=== PATIENT | male | born 1990 | race Caucasian/White ===

== ENCOUNTER → 2019-09-14 | Outpatient (CLI) | payer BC ==
[2019-09-14 16:54] LABS: SEMEN VOLUME 2.5 ML (1.5-5.0)
== END ==
LOC: LAB 16:25
DX: N46.9 Male infertility, unspecified (principal)
CPT/HCPCS: 89320

== ENCOUNTER 2020-02-29 15:54 | Outpatient (RCR) | payer BC | END 2020-05-29 | disposition home or self-care (01) | LOC: LAB 15:54 | PROVIDERS: ATTEND Urology | DX: N46.9 Male infertility, unspecified (principal) | CPT/HCPCS: 89320 ==